=== PATIENT | female | born 1995 | race Caucasian/White ===

== ENCOUNTER 2017-03-26 10:00 | Outpatient (CLI) | payer OTHER | END 2017-03-26 14:03 | disposition home or self-care (01) | LOC: RAD 10:00 → RX STUDY 10:15 → RAD 14:03 | DX: N93.0 Postcoital and contact bleeding (principal) ==

== ENCOUNTER 2021-04-26 23:41 | Emergency (ER) | payer OTHER ==
[~2021-04-26] VITALS: Ht 157.5 cm; Wt 88.0 kg
[2021-04-27] MEDS ORDERED: ACETAMINOPHEN650 M2 PO (03:39)
[2021-04-27] MEDS ORDERED: ACETAMINOPHEN325 M1 (04:40)
== END 2021-04-27 03:57 | disposition home or self-care (01) ==
LOC: ER 23:41
DX: O26.891 Other specified pregnancy related conditions, first trimester (principal); Z3A.12 12 weeks gestation of pregnancy; G43.909 Migraine, unspecified, not intractable, without status migrainosus

== ENCOUNTER 2021-07-22 19:41 | Outpatient (CLI) | payer OTHER ==
[~2021-07-22 19:41] MED LIST: ACETAMINOPHEN325 M1; ACETAMINOPHEN650 M2 PO
[2021-07-22] MEDS ORDERED: PRENATAL CAPLE1 EAC1 PO (21:16)
[2021-07-22] MEDS ORDERED: LO-DOSE ASPIRIN81 M1 PO (21:16)
== END 2021-07-23 10:04 | disposition home or self-care (01) ==
LOC: OBS/DEL 19:41
PROVIDERS: ATTEND Obstetrics & Gynecology
DX: O26.892 Other specified pregnancy related conditions, second trimester (principal); Z3A.26 26 weeks gestation of pregnancy; R30.0 Dysuria; M54.89 Other dorsalgia

== ENCOUNTER 2021-10-04 22:10 | Outpatient (CLI) | payer OTHER ==
[~2021-10-04 22:10] MED LIST changes: +LO-DOSE ASPIRIN81 M1 PO; +PRENATAL CAPLE1 EAC1 PO
== END 2021-10-05 12:45 | disposition home or self-care (01) ==
LOC: OBS/DEL 22:10
PROVIDERS: ATTEND Obstetrics & Gynecology
DX: O26.893 Other specified pregnancy related conditions, third trimester (principal); Z3A.35 35 weeks gestation of pregnancy; T14.8XXA Other injury of unspecified body region, initial encounter; V49.9XXA Car occupant (driver) (passenger) injured in unspecified traffic accident, initial encounter; Y93.89 Activity, other specified; Y92.410 Unspecified street and highway as the place of occurrence of the external cause

== ENCOUNTER 2022-10-23 14:17 | Emergency (ER) | payer OTHER ==
[~2022-10-23] VITALS: Ht 160 cm; Wt 86.2 kg
[~2022-10-23 14:17] MED LIST changes: +ECOTRIN81 MG PO; +IRON325 MG PO; +PRENATA CHEWAB1 EACH PO
[2022-10-23] MEDS ORDERED: PRENATAL + DHA1 EAC1 PO (14:34)
== END 2022-10-23 19:45 | disposition home or self-care (01) ==
LOC: ER 14:17
PROVIDERS: Nurse Practitioner Family
DX: O20.8 Other hemorrhage in early pregnancy (principal); Z3A.01 Less than 8 weeks gestation of pregnancy; N89.8 Other specified noninflammatory disorders of vagina; Z20.822 Contact with and (suspected) exposure to COVID-19